=== PATIENT | female | born 1955 | race Caucasian/White ===

== ENCOUNTER 2018-05-04 12:27 | Outpatient (CLI) | payer BC ==
[2018-05-04 14:21] LABS: #Basophils 0.1 thou/uL (0.0-0.2); #Eosinphils 0.2 thou/uL (0.0-0.7); #Lymphocytes 1.8 thou/uL (1.20-3.40); #Monocytes 0.5 thou/uL (0.11-0.59); %Basophils 1.5 % (0.0-1.0); %Eosinophils 3.6 % (0.0-10.0); %Lymphocytes 27.2 % (21.0-51.0); %Monocytes 7.7 % (0.0-10.0); %Neutrophils 60.1 % (42.0-75.0); Hemoglobin 13.5 g/dL (12.0-16.0); Mean Corpuscular HGB CONC 31.9 g/dL (32.0-36.0); Mean Corpuscular Hemoglobin 30.3 pg (27.0-31.0); Mean Platelet Volume 6.1 fL (7.4-10.4); Platelet Count 361 thou/uL (130-400); Red Blood Cell (RBC) Count 4.46 mill/uL (4.20-5.40); White Blood Cell (WBC) Count 6.7 thou/uL (4.8-10.8)
[2018-05-04 14:27] LABS: Prothrombin Time 12.8 SEC (12.0-14.7)
[2018-05-04 14:44] LABS: Anion Gap 13 mmol/L (10-20); BUN (Urea Nitrogen) 25 mg/dL (9.8-20.1); Calc. Creatinine Clearance 0 mL/min (70-130); Calcium 9.8 mg/dL (7.8-10.44); Carbon Dioxide 25 mmol/L (23-31); Chloride 108 mmol/L (98-107); Estimated GFR-MDRD 78; Glucose 89 mg/dL (80-115); Sodium 142 mmol/L (136-145)
[2018-05-04 14:45] LABS: Bilirubin Negative (Negative); Blood, Urine Negative (Negative); Clarity CLEAR (Clear); Glucose, Urine (Dipstick) Negative (Negative); Leukocyte Negative (Negative); Nitrite Negative (Negative); Protein, Urine (Dipstick) Negative (Neg-Trace); Specific Gravity, Urine 1.028 (1.002-1.036); Urobilinogen 0.2 mg/dL (0.2-1.0); pH, Urine 5.5 (5.0-9.0)
[2018-05-04 14:52] LABS: Bacteria/HPF Rare-Few HPF (None Seen); Hyaline Casts/LPF 0-3 HYALINE CAST LPF (0-3 Hyaline); Pathc Cast-AUWi Flag 0.72 (0-2.49)
--- NOTE | 2018-05-07 20:56 | EKG ---
Test Reason : Blood Pressure : / mmHG Vent. Rate : 076 BPM Atrial Rate : 076 BPM P-R Int : 170 ms QRS Dur : 074 ms QT Int : 390 ms P-R-T Axes : 020 006 027 degrees QTc Int : 438 ms Normal sinus rhythm Cannot rule out Anterior infarct (cited on or before 11-MAR-2015) Abnormal ECG When compared with ECG of 11-MAR-2015 13:00, No significant change was found Confirmed by Chantell PARRISH ([id number]) on 05/07/2018 8:56:03 PM Referred By: ADDY Confirmed By:Chantell PARRISH
== END 2018-05-04 12:28 | disposition home or self-care (01) ==
LOC: LABBT 12:27
PROVIDERS: ATTEND Orthopaedic Surgery
DX: Z01.818 Encounter for other preprocedural examination (principal); M16.12 Unilateral primary osteoarthritis, left hip
CPT/HCPCS: 80048; 81001; 85025; 85610; 86850; 86900; 86901; 87081; 87086; 93005; 93010

== ENCOUNTER 2018-05-04 12:30 | Inpatient (IN) | payer BC ==
--- NOTE | 2018-05-04 10:29 | HP ---
HISTORY OF PRESENT ILLNESS: The patient is a 63-year-old female with progressive left hip pain over the past 3 months without injury. She has had progressive hip and groin pain almost to the point of incapacitation. She has had progressive symptoms despite rest, restriction of activities and use of antiinflammatory medications, most recently Celebrex. The pain is now interfering with day-to-day ac tivities including walking, getting dressed and sleeping. PAST MEDICAL HISTORY: Please see the old chart. The patient has had previous right total hip replac ement approximately 3 years ago with good results. She has a history of depression, but is otherwise in good health. ALLERGIES: AUGMENTIN, CLINDAMYCIN and VANCOMYCIN. She has had no problems tolerating cephalosporins or quinolones. FAMILY HISTORY/SOCIAL HISTORY/REVIEW OF SYSTEMS: Otherwise unremarkable. PHYSICAL EXAMINATION: GENERAL: Reveals a healthy heavyset female. HEENT: Unremarkable. NECK: Supple. CHEST: Clear. HEART: Regular rate and rhythm. ABDOMEN: Soft, nontender. PELVIC/RECTAL/BREAST: Exams are deferred. EXTREMITIES: Pertinent findings of the left hip. Left leg is shorter by 1.5 cm. There is tendernes s in the left groin and also posterior hip. There is a left antalgic gait with a cane. There is dec reased range of motion of the left hip and groin pain with internal rotation of the hip. Neurovascul ar exam is intact. LABORATORY AND X-RAY FINDINGS: X-rays of the left hip reveal severe DJD of the hip with no joint spa ce remaining with marked change from previous x-rays taken 3 years ago. IMPRESSION: 1. Progressive degenerative arthritis, left hip. 2. Status post right total hip replacement. PLAN: Left total hip replacement. The nature of the surgery, length of recovery, and potential comp lications such as infection, loss of motion, incomplete relief, neurovascular injury, thromboembolic phenomenon, leg length discrepancy, possible transfusion, and need for revision have been discussed i n detail.
[2018-05-15] MEDS ORDERED: Sodium Chloride 0.9% 100 ML ONE (09:45)
[2018-05-15] MEDS ORDERED: Levofloxacin 500 mg/D5W 100 ml Premix Bag ONE (09:45)
[2018-05-15] MEDS ORDERED: Fentanyl 100 MCG/2 ML VIAL ONE ×2 (10:26→11:40)
[2018-05-15] MEDS ORDERED: Midazolam HCl 2 mg/2 ml Vial ONE (10:26)
[2018-05-15] MEDS ORDERED: CEFAZOLIN/Water 2 GM/20 ML SYRINGE ONE (11:26)
[2018-05-15] MEDS ORDERED: Naloxone HCl 0.4 mg/ml Vial IVP PRN (11:30)
[2018-05-15] MEDS ORDERED: traMADol HCl 50 MG TAB PO PRN ×3 (11:30→16:12)
[2018-05-15] MEDS ORDERED: diphenhydrAMINE 50 MG/ML VIAL IVP PRN (11:30)
[2018-05-15] MEDS ORDERED: Hydrocerin (Eucerin) Cream 120 gm Jar TOP PRN (11:30)
[2018-05-15] MEDS ORDERED: Naloxone HCl 0.4 mg/ml Vial IV PRN (11:30)
[2018-05-15] MEDS ORDERED: Zolpidem Tartrate 5 MG TAB PO PRN ×2 (11:30→16:12)
[2018-05-15] MEDS ORDERED: Promethazine HCl 25 MG SUPP PR PRN (11:30)
[2018-05-15] MEDS ORDERED: HYDROcodone/Acetaminophen 5/325 mg Tablet PO PRN (11:30)
[2018-05-15] MEDS ORDERED: diphenhydrAMINE 50 MG/ML VIAL IM PRN (11:30)
[2018-05-15] MEDS ORDERED: Ondansetron HCl/PF 4 MG/2 ML Vial IVP PRN ×3 (11:30→16:12)
[2018-05-15] MEDS ORDERED: Promethazine HCl 25 MG/ML VIAL IM PRN ×2 (11:30→12:23)
[2018-05-15] MEDS ORDERED: Bupivacaine 0.25% 10 ML VIAL EPIDURAL PRN (11:30)
[2018-05-15] MEDS ORDERED: Bupivacaine HCl 0.5%/Epinephrine 1:200,000/PF 30 ml Vial ONE (11:41)
[2018-05-15] MEDS ORDERED: Promethazine HCl 25 MG/ML VIAL SLOW IVP PRN ×2 (12:23→16:12)
[2018-05-15] MEDS ORDERED: Tranexamic Acid 1,000 MG in Sodium Chloride 0.9% 100 ML IVPB SCH ×2 (14:15→16:12)
[2018-05-15] MEDS ORDERED: fentaNYL Citrate/PF 1,250 MCG, Bupivacaine 25 ML in Sodium Chloride 0.9% 250 ML 200 ML EPIDURAL SCH (15:00)
--- NOTE | 2018-05-15 15:06 | OP ---
DATE OF PROCEDURE: 05/15/2018 SURGEON: Rudy Alvarado M.D. DRUG ABUSE WORKER: FRITZ Menjivar. ANESTHESIA: General plus epidural. PREOPERATIVE DIAGNOSIS: Degenerative arthritis, left hip. POSTOPERATIVE DIAGNOSIS: Degenerative arthritis, left hip. PROCEDURE: Left total hip replacement with uncemented [place] Trident PSL acetabular component 54 mm with X3 polyethylene insert and uncemented [place] Accolade femoral stem 3.5 with 132-degree angle t runnion and -2.5 mm neck length, 36 mm Delta ceramic femoral head. NARRATIVE REPORT: After satisfactory anesthesia was induced in supine position, the patient was plac ed in lateral decubitus position. this position held with a hip positioning device. Sequential compr ession device was placed on the non-operative leg throughout the procedure. The patient was prepped and draped in routine sterile fashion. The hip was approached through a lateral curvilinear incision centered over the greater trochanter and carried down to subcutaneous tissues, and bleeding points c ontrolled with Bovie cautery. IT band and gluteal fascia were split in line with the skin incision. Direct lateral approach to the hip joint was accomplished by dividing the anterior third of the glut eus medius and minimus tendons with Bovie cautery and reflecting this as a single flap anteriorly and medially along with vastus lateralis. Anterior capsulectomy was performed and the hip dislocated an teriorly. There was marked degenerative arthritis of the hip with large areas of exposed bone. The femoral neck was osteotomized with an oscillating saw using a trial prosthesis as a guide. The aceta bulum was exposed. A Charnley spiked retractor was placed superior to the acetabulum for exposure an d retraction and acetabulum exposed and cleaned of all soft tissue and debris. It was then reamed in sequence with power reamers to a total of 54 mm. It was felt that the 54 mm Trident PSL outer shell could be placed in a press fit fashion. The permanent component was then hammered in position. The re was good fit and stability of the shell and the permanent X3 polyethylene liner was snapped into p osition. The proximal femur was exposed and opened with a box osteotome, then rasped in sequence to accept a 3.5 mm Accolade femoral rasp. Trial reduction with 132-degree neck angle trunnion and the - 2.5, 36 mm femoral head trial gave appropriate size, fit, and stability. The trial components were r emoved. The permanent 3.5 Accolade femoral stem was then hammered in position. There was again good fit and stability. The permanent -2.5 neck length 36 mm Delta ceramic femoral head was then placed on the trunnion. The hip again reduced and found to be stable. Wound was copiously irrigated with p ulsatile lavage. The abductors were repaired with interrupted #2 Vicryl. IT band and gluteal fascia were closed with interrupted #2 Vicryl and a running #2 Quill. Subcutaneous tissues were closed wit h interrupted #2 Vicryl and a running 0 Quill. Skin was closed with running subcuticular 3-0 Monoder m and SurgiSeal skin adhesive. Sterile dressing was applied. The patient turned to the supine posit ion, a pillow placed between her legs and sequential compression device applied to her operated leg. She was then awakened and taken to recovery room in stable condition. There were no apparent intrao perative complications. The estimated blood loss was 300 mL.
--- NOTE | 2018-05-15 15:27 | RAD ---
LEFT HIP TWO VIEWS: HISTORY: Postop total hip. COMPARISON: None. FINDINGS: Satisfactory postop appearance of left hip arthroplasty. Expected postoperative gas and edema. IMPRESSION: Satisfactory postoperative appearance. POS: ADRIEN
[2018-05-15] MEDS ORDERED: Acetaminophen 325 MG TAB PO PRN (16:12)
[2018-05-15] MEDS ORDERED: HYDROcodone/Acetaminophen 10/325 mg Tablet PO PRN ×2 (16:12)
[2018-05-15] MEDS ORDERED: Lorazepam 1 MG TAB PO PRN (16:12)
[2018-05-15] MEDS ORDERED: Methocarbamol 500 MG TAB PO PRN (16:12)
[2018-05-15] MEDS ORDERED: Fentanyl 100 MCG/2 ML VIAL SLOW IVP PRN ×2 (16:12)
[2018-05-15] MEDS ORDERED: diphenhydrAMINE 25 MG CAP PO PRN (16:12)
[2018-05-15] MEDS ORDERED: Glycopyrrolate 0.2 MG/ML 5 ML SYRINGE ONE (16:30)
[2018-05-15] MEDS ORDERED: Lidocaine 1% PF 5 ML VIAL ONE (16:30)
[2018-05-15] MEDS ORDERED: PROPOFOL 200 MG/20 ML VIAL ONE (16:30)
[2018-05-15] MEDS ORDERED: ePHEDrine/0.9% NaCl/PF SYRINGE 50 mg/10 ml ONE (16:30)
[2018-05-15] MEDS ORDERED: Ondansetron HCl/PF 4 MG/2 ML Vial ONE (16:30)
[2018-05-15] MEDS ORDERED: PHENYLEPHRINE-NS 100 MCG/ML 10 ML SYRINGE ONE (16:30)
[2018-05-15] MEDS: diphenhydrAMINE 25 MG CAP PO PRN ×2 (17:00→20:07)
[2018-05-15] MEDS: Sodium Chloride 0.9% 1,000 ML IV SCH (17:01)
[2018-05-15] MEDS: Aspirin 81 mg Enteric Coated Tablet PO SCH (20:07)
[2018-05-15] MEDS: CEFAZOLIN/Water 2 GM/20 ML SYRINGE SLOW IVP SCH (20:07)
[2018-05-15] MEDS: Ketorolac Tromethamine 30 MG/ML VIAL IVP SCH (21:07)
--- NOTE | 2018-05-15 21:12 | PDOC.PN ---
- Subjective Encounter Start Date: 05/15/18 Encounter Start Time: 16:00 Subjective: pt up in bed appears dorwsy, no complains of pain - Objective Vital Signs & Weight: Vital Signs (12 hours) Temp Pulse Resp BP Pulse Ox 05/15/18 16:00 97.6 F 71 18 101/70 98 Weight Weight 252 lb I&O: 05/14/18 05/15/18 05/16/18 06:59 06:59 06:59 Intake Total 781 Output Total 250 Balance 531 Phys Exam - Physical Examination HEENT: PERRLA, moist MMs, sclera anicteric, TM's clear, oral pharynx no lesions , 2+ tonsils Neck: no nodes, no JVD, supple, full ROM Respiratory: no wheezing, no rales, no rhonchi, wheezing present, clear to auscultation bilateral Cardiovascular: RRR, no significant murmur, no rub, gallop, irregular Gastrointestinal: soft, non-tender, no distention, positive bowel sounds right hip dressing intact Dx/Plan (1) Depression Code(s): F32.9 - MAJOR DEPRESSIVE DISORDER, SINGLE EPISODE, UNSPECIFIED Status : Acute (2) Anxiety Code(s): F41.9 - ANXIETY DISORDER, UNSPECIFIED Status: Acute (3) Status post total replacement of left hip Code(s): Z96.642 - PRESENCE OF LEFT ARTIFICIAL HIP JOINT Status: Acute - Plan will continue home meds -: pain managment per surgery * . Review of Systems - Review of Systems Respiratory: negative: Cough, Dry, Shortness of Breath, Hemoptysis, SOB with Excertion, Pleuritic Pain, Sputum, Wheezing Cardiovascular: negative: chest pain, palpitations, orthopnea, paroxysmal nocturnal dyspnea, edema, light headedness, other Gastrointestinal: negative: Nausea, Vomiting, Abdominal Pain, Diarrhea, Constipation, Melena, Hematochezia, Other Genitourinary: negative: Dysuria, Frequency, Incontinence, Hematuria, Retention , Other - Medications/Allergies Allergies/Adverse Reactions: Allergies Allergy/AdvReac Type Severity Reaction Status Date / Time amoxicillin trihydrate Allergy Swollen Verified 05/04/18 13:00 [From Augmentin] Lips clindamycin Allergy Short of Verified 05/04/18 13:00 Breath potassium clavulanate Allergy Swollen Verified 05/04/18 13:00 [From Augmentin] Lips vancomycin Allergy Hives Verified 05/04/18 13:00 Medications: Current Medications Acetaminophen (Tylenol) 650 mg PO Q4H PRN PRN Reason: ESCOTO/ T > 101F; Mild Pain (1-3) Hydrocodone Bitart/Acetaminophen ([place] 5/325) 1 tab PO Q4H PRN PRN Reason: Mild Pain 0-3 Hydrocodone Bitart/Acetaminophen ([place] 5/325) 2 tab PO Q4H PRN PRN Reason: For Moderate Pain 4-6 Aspirin (Ecotrin) 81 mg PO BID [facility] Last Admin: 05/15/18 20:07 Dose: 81 mg Bupivacaine HCl (Marcaine) 5 ml EPIDURAL ONE PRN PRN Reason: UNCONTROLLED PAIN Stop: 05/18/18 11:31 Cefazolin Sodium (Ancef) 2 gm SLOW IVP 0400,1200,2000 [facility] Stop: 05/16/18 04:01 Last Admin: 05/15/18 20:07 Dose: 2 gm Diphenhydramine HCl (Benadryl) 25 mg PO Q3H PRN PRN Reason: Itching Last Admin: 05/15/18 20:07 Dose: 25 mg Diphenhydramine HCl (Benadryl) 25 mg IM Q3H PRN PRN Reason: Itching Diphenhydramine HCl (Benadryl) 25 mg IVP Q3H PRN PRN Reason: Itching Emollient Cream (Hydrocerin Cream) 0 gm TOP PRN PRN PRN Reason: Itching Last Admin: 05/15/18 20:14 Dose: 1 applic Ferrous Gluconate (Fergon) 324 mg PO BID [facility] Fentanyl Citrate 1,250 mcg/Bupivacaine HCl 25 ml/ Sodium Chloride 250 mls @ 0 mls/hr EPIDURAL INF [facility] Levofloxacin 500 mg/ Device 100 mls @ 100 mls/hr IVPB 1000 [facility] Stop: 05/16/18 10:59 Sodium Chloride (Normal Saline 0.9%) 1,000 mls @ 100 mls/hr IV .Q10H [facility] Last Admin: 05/15/18 17:01 Dose: Not Given Iron/Minerals/Multivitamins (Theragran M) 1 tab PO DAILY [facility] Ketorolac Tromethamine (Toradol) 30 mg IVP Q8HR [facility] Stop: 05/17/18 22:01 Last Admin: 05/15/18 21:07 Dose: 30 mg Methocarbamol (Robaxin) 500 mg PO DAILYPRN PRN PRN Reason: Pain Miscellaneous Information (Communication Order-Pharmacy) 1 each FS ASDIR [facility] Naloxone HCl (Narcan) 0.2 mg IV Q5MIN PRN PRN Reason: RR <=8 OR OBTUNDED/UNAROUSABLE Naloxone HCl (Narcan) 0.1 mg IVP Q15MIN PRN PRN Reason: URINARY RETENTION Ondansetron HCl (Zofran) 4 mg IVP Q6H PRN PRN Reason: Nausea/Vomiting Promethazine HCl (Phenergan) 12.5 mg IM Q4H PRN PRN Reason: Nausea Promethazine HCl (Phenergan Suppository) 25 mg AR Q4H PRN PRN Reason: Nausea/Vomiting Promethazine HCl (Phenergan) 12.5 mg SLOW IVP Q4H PRN PRN Reason: Nausea/Vomiting Senna/Docusate Sodium (Senokot S) 2 tab PO BID [facility] Sodium Chloride (Flush - Normal Saline) 10 ml IVF PRN PRN PRN Reason: Saline Flush Tramadol HCl (Ultram) 50 mg PO Q6H PRN PRN Reason: Mild Pain 1-3 Tramadol HCl (Ultram) 100 mg PO Q6H PRN PRN Reason: Moderate Pain 4-6 Venlafaxine HCl (Effexor Xr) 300 mg PO DAILY [facility] Zolpidem Tartrate (Ambien) 5 mg PO HSPRN PRN PRN Reason: Insomnia
[2018-05-15] MEDS: HYDROcodone/Acetaminophen 5/325 mg Tablet PO PRN (23:07)
[2018-05-16] MEDS: Sodium Chloride 0.9% 1,000 ML IV SCH ×3 (02:19→23:00)
[2018-05-16] MEDS: HYDROcodone/Acetaminophen 5/325 mg Tablet PO PRN ×4 (04:25→20:05)
[2018-05-16] MEDS: CEFAZOLIN/Water 2 GM/20 ML SYRINGE SLOW IVP SCH (04:27)
[2018-05-16 06:20] LABS: Hemoglobin 11.2 g/dL (12.0-16.0); Mean Corpuscular HGB CONC 31.6 g/dL (32.0-36.0); Mean Corpuscular Hemoglobin 30.6 pg (27.0-31.0); Mean Platelet Volume 6.2 fL (7.4-10.4); Platelet Count 321 thou/uL (130-400); RBC Distribution Width 12.1 % (11.5-14.5); Red Blood Cell (RBC) Count 3.67 mill/uL (4.20-5.40); White Blood Cell (WBC) Count 7.1 thou/uL (4.8-10.8)
[2018-05-16] MEDS: Ketorolac Tromethamine 30 MG/ML VIAL IVP SCH ×3 (06:44→21:32)
[2018-05-16] MEDS: Senokot S 8.6-50 MG TAB PO SCH ×2 (08:51→20:03)
[2018-05-16] MEDS: Aspirin 81 mg Enteric Coated Tablet PO SCH ×2 (08:51→20:03)
[2018-05-16] MEDS: Multivitamin W/ Minerals 1 TAB PO SCH (08:52)
[2018-05-16] MEDS: Venlafaxine HCl XR 150 MG CAP PO SCH (08:52)
[2018-05-16] MEDS: Ferrous Gluconate 324 MG TAB PO SCH ×2 (08:52→20:03)
[2018-05-16 12:58] VITALS: BMI 39.5
--- NOTE | 2018-05-16 16:48 | PDOC.PN ---
- Subjective Encounter Start Date: 05/16/18 Encounter Start Time: 09:30 Subjective: pt sitting up no complains - Objective Vital Signs & Weight: Vital Signs (12 hours) Temp Pulse Resp BP BP Pulse Ox 05/16/18 15:38 98.1 F 80 18 106/72 97 05/16/18 11:42 98.4 F 79 18 118/64 98 05/16/18 07:50 98.5 F 81 18 98/64 97 Weight Admit Weight 260 lb Weight 260 lb I&O: 05/15/18 05/16/18 05/17/18 06:59 06:59 06:59 Intake Total 3034 Output Total 1150 Balance 1884 Result Diagrams: 05/16/18 05:30 Phys Exam - Physical Examination HEENT: PERRLA, moist MMs, sclera anicteric, TM's clear, oral pharynx no lesions , 2+ tonsils Neck: no nodes, no JVD, supple, full ROM Respiratory: no wheezing, no rales, no rhonchi, wheezing present, clear to auscultation bilateral Cardiovascular: RRR, no significant murmur, no rub, gallop, irregular Gastrointestinal: soft, non-tender, no distention, positive bowel sounds Musculoskeletal: no edema left hip dressing intact Dx/Plan (1) Depression Code(s): F32.9 - MAJOR DEPRESSIVE DISORDER, SINGLE EPISODE, UNSPECIFIED Status : Acute (2) Anxiety Code(s): F41.9 - ANXIETY DISORDER, UNSPECIFIED Status: Acute (3) Status post total replacement of left hip Code(s): Z96.642 - PRESENCE OF LEFT ARTIFICIAL HIP JOINT Status: Acute - Plan will continue current meds -: vitals stable * . Review of Systems - Review of Systems Respiratory: negative: Cough, Dry, Shortness of Breath, Hemoptysis, SOB with Excertion, Pleuritic Pain, Sputum, Wheezing Cardiovascular: negative: chest pain, palpitations, orthopnea, paroxysmal nocturnal dyspnea, edema, light headedness, other Gastrointestinal: negative: Nausea, Vomiting, Abdominal Pain, Diarrhea, Constipation, Melena, Hematochezia, Other Genitourinary: negative: Dysuria, Frequency, Incontinence, Hematuria, Retention , Other - Medications/Allergies Allergies/Adverse Reactions: Allergies Allergy/AdvReac Type Severity Reaction Status Date / Time amoxicillin trihydrate Allergy Swollen Verified 05/04/18 13:00 [From Augmentin] Lips clindamycin Allergy Short of Verified 05/04/18 13:00 Breath potassium clavulanate Allergy Swollen Verified 05/04/18 13:00 [From Augmentin] Lips vancomycin Allergy Hives Verified 05/04/18 13:00 Medications: Current Medications Acetaminophen (Tylenol) 650 mg PO Q4H PRN PRN Reason: ESCOTO/ T > 101F; Mild Pain (1-3) Hydrocodone Bitart/Acetaminophen ([place] 5/325) 1 tab PO Q4H PRN PRN Reason: Mild Pain 0-3 Hydrocodone Bitart/Acetaminophen ([place] 5/325) 2 tab PO Q4H PRN PRN Reason: For Moderate Pain 4-6 Last Admin: 05/16/18 15:33 Dose: 2 tab Aspirin (Ecotrin) 81 mg PO BID [facility] Last Admin: 05/16/18 08:51 Dose: 81 mg Bupivacaine HCl (Marcaine) 5 ml EPIDURAL ONE PRN PRN Reason: UNCONTROLLED PAIN Stop: 05/18/18 11:31 Diphenhydramine HCl (Benadryl) 25 mg PO Q3H PRN PRN Reason: Itching Last Admin: 05/15/18 20:07 Dose: 25 mg Diphenhydramine HCl (Benadryl) 25 mg IM Q3H PRN PRN Reason: Itching Diphenhydramine HCl (Benadryl) 25 mg IVP Q3H PRN PRN Reason: Itching Emollient Cream (Hydrocerin Cream) 0 gm TOP PRN PRN PRN Reason: Itching Last Admin: 05/15/18 20:14 Dose: 1 applic Ferrous Gluconate (Fergon) 324 mg PO BID [facility] Last Admin: 05/16/18 08:52 Dose: 324 mg Fentanyl Citrate 1,250 mcg/Bupivacaine HCl 25 ml/ Sodium Chloride 250 mls @ 0 mls/hr EPIDURAL INF [facility] Sodium Chloride (Normal Saline 0.9%) 1,000 mls @ 100 mls/hr IV .Q10H [facility] Last Admin: 05/16/18 12:59 Dose: Not Given Iron/Minerals/Multivitamins (Theragran M) 1 tab PO DAILY [facility] Last Admin: 05/16/18 08:52 Dose: 1 tab Ketorolac Tromethamine (Toradol) 30 mg IVP Q8HR [facility] Stop: 05/17/18 22:01 Last Admin: 05/16/18 13:00 Dose: 30 mg Methocarbamol (Robaxin) 500 mg PO DAILYPRN PRN PRN Reason: Pain Miscellaneous Information (Communication Order-Pharmacy) 1 each FS ASDIR [facility] Naloxone HCl (Narcan) 0.2 mg IV Q5MIN PRN PRN Reason: RR <=8 OR OBTUNDED/UNAROUSABLE Naloxone HCl (Narcan) 0.1 mg IVP Q15MIN PRN PRN Reason: URINARY RETENTION Ondansetron HCl (Zofran) 4 mg IVP Q6H PRN PRN Reason: Nausea/Vomiting Promethazine HCl (Phenergan) 12.5 mg IM Q4H PRN PRN Reason: Nausea Promethazine HCl (Phenergan Suppository) 25 mg MA Q4H PRN PRN Reason: Nausea/Vomiting Promethazine HCl (Phenergan) 12.5 mg SLOW IVP Q4H PRN PRN Reason: Nausea/Vomiting Senna/Docusate Sodium (Senokot S) 2 tab PO BID [facility] Last Admin: 05/16/18 08:51 Dose: 2 tab Sodium Chloride (Flush - Normal Saline) 10 ml IVF PRN PRN PRN Reason: Saline Flush Tramadol HCl (Ultram) 50 mg PO Q6H PRN PRN Reason: Mild Pain 1-3 Tramadol HCl (Ultram) 100 mg PO Q6H PRN PRN Reason: Moderate Pain 4-6 Venlafaxine HCl (Effexor Xr) 300 mg PO DAILY [facility] Last Admin: 05/16/18 08:52 Dose: 300 mg Zolpidem Tartrate (Ambien) 5 mg PO HSPRN PRN PRN Reason: Insomnia
[2018-05-17] MEDS: HYDROcodone/Acetaminophen 5/325 mg Tablet PO PRN ×3 (00:15→12:06)
[2018-05-17 04:58] LABS: Mean Corpuscular HGB CONC 31.8 g/dL (32.0-36.0); Mean Corpuscular Hemoglobin 30.8 pg (27.0-31.0); Mean Corpuscular Volume 96.8 fL (78.0-98.0); Mean Platelet Volume 6.2 fL (7.4-10.4); Platelet Count 306 thou/uL (130-400); RBC Distribution Width 12.3 % (11.5-14.5); Red Blood Cell (RBC) Count 3.57 mill/uL (4.20-5.40); White Blood Cell (WBC) Count 8.9 thou/uL (4.8-10.8)
[2018-05-17] MEDS: Ketorolac Tromethamine 30 MG/ML VIAL IVP SCH (06:18)
[2018-05-17] MEDS: Ferrous Gluconate 324 MG TAB PO SCH (07:55)
[2018-05-17] MEDS: Venlafaxine HCl XR 150 MG CAP PO SCH (07:56)
[2018-05-17] MEDS: Senokot S 8.6-50 MG TAB PO SCH (07:56)
[2018-05-17] MEDS: Aspirin 81 mg Enteric Coated Tablet PO SCH (07:56)
[2018-05-17] MEDS: Multivitamin W/ Minerals 1 TAB PO SCH (07:57)
[2018-05-17] MEDS: Sodium Chloride 0.9% 1,000 ML IV SCH (10:23)
[2018-05-17 11:41] VITALS: BP 103/58; TEMP 98.2
== END 2018-05-17 15:15 | disposition home or self-care (01) | DRG 470 ==
LOC: SURG A 05-15 08:27 → SJJU 05-15 15:57
PROVIDERS: ADMIT Orthopaedic Surgery; ATTEND Orthopaedic Surgery
PROC: 0SRB04A Replacement of Left Hip Joint with Ceramic on Polyethylene Synthetic Substitute, Uncemented, Open Approach (ICD-10-PCS; principal; 2018-05-15)
DX: M16.12 Unilateral primary osteoarthritis, left hip (principal); Z88.1 Allergy status to other antibiotic agents; Z96.641 Presence of right artificial hip joint; Z79.899 Other long term (current) drug therapy; Z79.891 Long term (current) use of opiate analgesic; F32.9 Major depressive disorder, single episode, unspecified; F41.9 Anxiety disorder, unspecified
CPT/HCPCS: 36415; 85027; 86850; 86900; 86901; 90471; 90686; G0008; G8978-GP-CK; G8979-GP-CI; G8987-GO-CJ; G8988-GO-CI; J0670; J1200; J1885; J1956; J2001; J2250; J2405; J2704; J3010; J3490; J7050